=== PATIENT | female | born 2000 | race African-American/Black ===

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

== ENCOUNTER 2018-04-01 00:07 | Emergency (ER) | payer OTHER ==
[~2018-04-01] VITALS: Ht 165.1 cm; Wt 57.9 kg
[2018-04-01 00:33] VITALS: BP 115/71
[2018-04-01 00:56] LABS: HEMATOCRIT 30.7 % (36.0-46.0); HEMOGLOBIN 10.4 G/DL (11.9-15.5); MCH 31.9 PG (29.0-34.0); MCHC 33.9 G/DL (30.0-36.0); MCV 94.2 FL (83-99); PLATELET COUNT 326 K/uL (156-360); RBC DIS.WIDTH-CV 12.8 % (11.8-14.6); RBC DIS.WIDTH-SD 44.4 % (39-53); RED BLOOD COUNT 3.26 M/uL (3.80-5.20)
== END 2018-04-01 02:15 | disposition left against medical advice (07) ==
LOC: EME 00:07
DX: N93.9 Abnormal uterine and vaginal bleeding, unspecified (principal); Z53.21 Procedure and treatment not carried out due to patient leaving prior to being seen by health care provider
CPT/HCPCS: 81003; 84702; 85027

== ENCOUNTER 2018-04-01 15:47 | Emergency (ER) | payer OTHER ==
[~2018-04-01] VITALS: Ht 165.1 cm; Wt 59.2 kg
[2018-04-01 17:09] LABS: BASOPHIL (%) 0.6 % (0-1); BASOPHIL COUNT 0.1 K/uL (0-0.1); EOSINOPHIL (%) 2.4 % (0-5); EOSINOPHIL COUNT 0.2 K/uL (0-0.3); HEMATOCRIT 29.8 % (36.0-46.0); HEMOGLOBIN 10.1 G/DL (11.9-15.5); IMMATURE GRANULOCYTE (%) 0.2 % (0.0-0.7); LYMPHOCYTE (%) 20.6 % (15-42); LYMPHOCYTE COUNT 1.9 K/uL (1.0-2.8); MCH 32.2 PG (29.0-34.0); MCHC 33.9 G/DL (30.0-36.0); MCV 94.9 FL (83-99); MONOCYTE (%) 7.6 % (3-12); MONOCYTE COUNT 0.7 K/uL (0-0.8); NEUTROPHIL (%) 68.6 % (45-76); NEUTROPHIL COUNT 6.2 K/uL (1.8-6.4); PLATELET COUNT 272 K/uL (156-360); RBC DIS.WIDTH-CV 12.9 % (11.8-14.6); RBC DIS.WIDTH-SD 44.7 % (39-53); RED BLOOD COUNT 3.14 M/uL (3.80-5.20)
[2018-04-01 17:17] LABS: ALBUMIN 4.2 g/dL (3.2-4.8); CHLORIDE 104 mEq/L (99-109); POTASSIUM 3.8 mEq/L (3.7-5.4); SODIUM 138 mEq/L (136-147)
[2018-04-01 17:18] LABS: MAGNESIUM 2.2 mg/dL (1.3-2.7)
[2018-04-01 17:20] LABS: GLUCOSE 90 mg/dL (70-99)
[2018-04-01 17:22] LABS: TOTAL BILIRUBIN 0.8 mg/dL (0.0-1.0)
[2018-04-01 17:23] LABS: ALKALINE PHOSPHATASE 54 IU/L (3-129)
[2018-04-01 17:24] LABS: CREATININE 0.7 mg/dL (0.6-1.3); GFR ESTIMATE (CALCULATED) > 59 mL/min/
[2018-04-01 17:25] LABS: AST (GOT) 11 IU/L (2-34); UREA NITROGEN (BUN) 12 mg/dL (9-23)
[2018-04-01 17:27] LABS: ALT (GPT) 7 IU/L (3-49)
[2018-04-01 17:32] LABS: QUANTITATIVE HCG 1365.1 MIU/ML
[2018-04-01 20:52] VITALS: BP 99/52
== END 2018-04-01 20:53 | disposition home or self-care (01) ==
LOC: EME 15:47
PROVIDERS: Emergency Medicine
DX: N93.8 Other specified abnormal uterine and vaginal bleeding (principal); R55 Syncope and collapse; R42 Dizziness and giddiness; J45.909 Unspecified asthma, uncomplicated; F32.9 Major depressive disorder, single episode, unspecified; F17.200 Nicotine dependence, unspecified, uncomplicated; Z88.0 Allergy status to penicillin
CPT/HCPCS: 76801; 80053; 82948; 83735; 84702; 85025; 93005; 99281; 99283